=== PATIENT | male | born 1995 | race Caucasian/White ===

== ENCOUNTER → 2018-04-13 | Outpatient (CLI) | payer BC | LOC: LAB 12:17 | PROVIDERS: ATTEND Nurse Practitioner Family | DX: J02.9 Acute pharyngitis, unspecified (principal) | CPT/HCPCS: 36415; 86308 ==

== ENCOUNTER 2019-07-22 19:49 | Emergency (ER) | payer BC ==
[~2019-07-22] VITALS: Ht 170 cm; Wt 111.0 kg
--- NOTE | 2019-07-22 20:12 | ED Abdominal Pain ---
General Chief Complaint: Abdominal/GI Problems Stated Complaint: CHEST PAIN Source of Information: Patient Exam Limitations: No Limitations History of Present Illness Date Seen by Provider: Jul 22, 2019 Time Seen by Provider: 20:10 Initial Comments To ER with reports of epigastric abdominal pain that radiates straight through to his back. This is been present for one week. He also reports shaking and significant anxiety. States that he went to the [facility] twice after breakup from his girlfriend 1 month ago, was briefly on 2.5 mg of Valium which seems to help. States that he was so anxious he almost didn't come in tonight. He also complains of a foul smelling sore on the dorsal aspect of his penis for about one month. He states that after his girlfriend broke up, she then came back to him and they had sexual intercourse. He states that the gentleman that the girl was with prior to him message him and told him he might have Chlamydia. He is now concerned he might have Chlamydia as well. Timing/Duration: 1-2 Days Severity/Quality: Moderate Allergies and Home Medications Allergies Coded Allergies: No Known Drug Allergies (Unverified , 07/22/19) Home Medications Clotrimazole 15 Gm Cream..g., 1 GM TP BID Prescribed by: JEANETH PALAFOX on 07/22/192019 Dicyclomine HCl 10 Mg Capsule, 10 MG PO QID Prescribed by: JEANETH PALAFOX on 07/22/192019 Divalproex Sodium 500 Mg Tablet.dr, 500 MG PO ONCE, (Reported) Levetiracetam 750 Mg Tablet, 750 MG PO DAILY, (Reported) Patient Home Medication List Home Medication List Reviewed: Yes Review of Systems Review of Systems Constitutional: see HPI EENTM: No Symptoms Reported Respiratory: No Symptoms Reported Cardiovascular: No Symptoms Reported Gastrointestinal: See HPI, Abdominal Pain, Diarrhea; Denies Nausea Genitourinary: No Symptoms Reported Musculoskeletal: no symptoms reported Skin: no symptoms reported Psychiatric/Neurological: No Symptoms Reported Endocrine: No Symptoms Reported Hematologic/Lymphatic: No Symptoms Reported Past Avikces-Bmragm-Yfepye Hx Patient Social History Recent Foreign Travel: No Contact w/Someone Who Travel: No Physical Exam Vital Signs Vital Signs - First Documented 07/22/19 19:50 Temp 36.4 Pulse 110 Resp 16 B/P (MAP) 145/87 (106) Pulse Ox 100 O2 Delivery Room Air Capillary Refill : Height/Weight/BMI Height: '" Weight: lbs. oz. kg; BMI Method: General Appearance: WD/WN, no apparent distress, obese Neck: non-tender, full range of motion Respiratory: no respiratory distress, no accessory muscle use Cardiovascular: regular rate, rhythm, no murmur Gastrointestinal: normal bowel sounds, soft Extremities: normal range of motion, non-tender Male: other (dorsal aspect of penis where glans meets shaft is a roughly 3/4 cm circular area of slight ulceration nontender to palpation with a whitish ad herent material over it. ) Neurologic/Psychiatric: alert, normal mood/affect, oriented x 3 Skin: normal color, warm/dry Progress/Results/Core Measures Results/Orders Lab Results Laboratory Tests Test 07/22/19 19:58 07/22/19 20:20 Range/Units Urine Color YELLOW Urine Clarity CLEAR Urine pH 7.0 5-9 Urine Specific [place] 1.025 H 1.016-1.022 Urine Protein NEGATIVE NEGATIVE Urine Glucose (UA) NEGATIVE NEGATIVE Urine Ketones TRACE H NEGATIVE Urine Nitrite NEGATIVE NEGATIVE Urine Bilirubin NEGATIVE NEGATIVE Urine Urobilinogen 1.0 < = 1.0 MG/DL Urine Leukocyte Esterase NEGATIVE NEGATIVE Urine RBC (Auto) NEGATIVE NEGATIVE Urine RBC NONE /HPF Urine WBC 2-5 /HPF Urine Squamous Epithelial Cells RARE /HPF Urine Crystals PRESENT H /LPF Urine Amorphous Sediment MOD KASSANDRA PHOSPHATE H /LPF Urine Bacteria TRACE /HPF Urine Casts NONE /LPF Urine Mucus SMALL H /LPF Urine Culture Indicated NO Syphilis Serology Non-Reactive Non-Reactive Urine Chlamydia trachomatis RNA Not Detected Not Detected Urine Neisseria gonorrhoeae RNA Not Detected Not Detected White Blood Count 9.5 4.3-11.0 10^3/uL Red Blood Count 4.98 4.35-5.85 10^6/uL Hemoglobin 15.3 13.3-17.7 G/DL Hematocrit 44 40-54 % Mean Corpuscular Volume 88 80-99 FL Mean Corpuscular Hemoglobin 31 25-34 PG Mean Corpuscular Hemoglobin Concent 35 32-36 G/DL Red Cell Distribution Width 12.5 10.0-14.5 % Platelet Count 261 130-400 10^3/uL Mean Platelet Volume 9.6 7.4-10.4 FL Neutrophils (%) (Auto) 52 42-75 % Lymphocytes (%) (Auto) 37 12-44 % Monocytes (%) (Auto) 10 0-12 % Eosinophils (%) (Auto) 1 0-10 % Basophils (%) (Auto) 0 0-10 % Neutrophils # (Auto) 4.9 1.8-7.8 X 10^3 Lymphocytes # (Auto) 3.5 1.0-4.0 X 10^3 Monocytes # (Auto) 1.0 0.0-1.0 X 10^3 Eosinophils # (Auto) 0.1 0.0-0.3 10^3/uL Basophils # (Auto) 0.0 0.0-0.1 10^3/uL Sodium Level 140 135-145 MMOL/L Potassium Level 3.8 3.6-5.0 MMOL/L Chloride Level 104 98-107 MMOL/L Carbon Dioxide Level 22 21-32 MMOL/L Anion Gap 14 5-14 MMOL/L Blood Urea Nitrogen 17 7-18 MG/DL Creatinine 1.01 0.60-1.30 MG/DL Estimat Glomerular Filtration Rate > 60 BUN/Creatinine Ratio 17 Glucose Level 93 70-105 MG/DL Calcium Level 9.3 8.5-10.1 MG/DL Corrected Calcium 8.5-10.1 MG/DL Total Bilirubin 0.3 0.1-1.0 MG/DL Aspartate Amino Transf (AST/SGOT) 19 5-34 U/L Alanine Aminotransferase (ALT/SGPT) 26 0-55 U/L Alkaline Phosphatase 37 L 40-136 U/L Total Protein 7.2 6.4-8.2 GM/DL Albumin 4.7 H 3.2-4.5 GM/DL Lipase 13 8-78 U/L My Orders Orders - JEANETH PALAFOX [employer] TECHNICIAN Cbc With Automated Diff (07/22/19 20:08) Lipase (07/22/19 20:08) Ua Culture If Indicated (07/22/19 20:08) Neis Germán Dna Urine Test (07/22/19 20:08) Chlamydia Trachomatis Urine (07/22/19 20:08) Syphilis Antibody Screen (07/22/19 20:08) Comprehensive Metabolic Panel (07/22/19 20:08) Alprazolam Tablet (Xanax Tablet) (07/22/19 20:15) Vital Signs/I&O 07/22/19 07/22/19 19:50 21:04 Temp 36.4 36.9 Pulse 110 79 Resp 16 16 B/P (MAP) 145/87 (106) 136/75 Pulse Ox 100 97 O2 Delivery Room Air Room Air Departure Impression Primary Impression: Balanitis Additional Impression: Epigastric abdominal pain Disposition: 01 HOME, SELF-CARE Condition: Improved Departure-Patient Inst. Decision time for Depature: 20:16 Referrals: NO,LOCAL PHYSICIAN (PCP/Family) Primary Care Physician Patient Instructions: Balanitis, IRRITABLE BOWEL SYNDROME Add. Discharge Instructions: 1. Apply the cream topically to the penis twice daily as directed. 2. Medication as directed. Follow-up with your doctor next week All discharge instructions reviewed with patient and/or family. Voiced understanding. Scripts Clotrimazole (Clotrimazole) 15 Gm Cream..g. 1 GM TP BID for 14 Days, #1 TUBE Prov: JEANETH PALAFOX [employer] TECHNICIAN 07/22/19 Dicyclomine HCl (Dicyclomine HCl) 10 Mg Capsule 10 MG PO QID, #40 CAP Prov: JEANETH PALAFOX [employer] TECHNICIAN 07/22/19 JEANETH PALAFOX [employer] TECHNICIAN Jul 22, 2019 20:12
[2019-07-22] MEDS ORDERED: DIVA500T PO (20:15)
[2019-07-22] MEDS ORDERED: LEVE750T19 PO (20:15)
[2019-07-22] MEDS ORDERED: ALPRAZolam 0.25 MG (XANAX) TAB PO ONE (20:15)
[2019-07-22] MEDS ORDERED: DICY10CA12 PO (20:20)
[2019-07-22] MEDS ORDERED: CLOT15CR5 TP (20:20)
[2019-07-22 20:22] LABS: BILIRUBIN,URINE NEGATIVE (NEGATIVE); CLARITY,URINE CLEAR; COLOR,URINE YELLOW; GLUCOSE, URINE (UA) NEGATIVE (NEGATIVE); KETONES,URINE TRACE (NEGATIVE); LEUKOCYTE ESTERASE ,URINE NEGATIVE (NEGATIVE); NITRITE,URINE NEGATIVE (NEGATIVE); PROTEIN,URINE NEGATIVE (NEGATIVE)
[2019-07-22 20:31] LABS: AMORPHOUS SEDIMENT,UR MOD AMOR PHOSPHATE /LPF; BACTERIA,URINE TRACE /HPF; SQUAMOUS EPITHELIAL CELL,UR RARE /HPF
[2019-07-22 20:34] LABS: BASOPHILS % (AUTO) 0 % (0-10); EOSINOPHILS # (AUTO) 0.1 10^3/uL (0.0-0.3); EOSINOPHILS % (AUTO) 1 % (0-10); HEMATOCRIT 44 % (40-54); HEMOGLOBIN 15.3 G/DL (13.3-17.7); LYMPHOCYTES # (AUTO) 3.5 X 10^3 (1.0-4.0); LYMPHOCYTES % (AUTO) 37 % (12-44); MEAN CORPUSCULAR HEMOGLOBIN 31 PG (25-34); MEAN CORPUSCULAR HGB CONC 35 G/DL (32-36); MEAN CORPUSCULAR VOLUME 88 FL (80-99); MEAN PLATELET VOLUME 9.6 FL (7.4-10.4); MONOCYTES % (AUTO) 10 % (0-12); NEUTROPHILS # (AUTO) 4.9 X 10^3 (1.8-7.8); NEUTROPHILS % (AUTO) 52 % (42-75); PLATELET COUNT 261 10^3/uL (130-400); RED CELL DISTRIBUTION WIDTH 12.5 % (10.0-14.5); WHITE BLOOD COUNT 9.5 10^3/uL (4.3-11.0)
[2019-07-22 20:47] LABS: ALANINE AMINOTRANSFERASE 26 U/L (0-55); ALBUMIN 4.7 GM/DL (3.2-4.5); ALKALINE PHOSPHATASE 37 U/L (40-136); BILIRUBIN,TOTAL 0.3 MG/DL (0.1-1.0); BUN/CREATININE RATIO 17; CALCIUM 9.3 MG/DL (8.5-10.1); CARBON DIOXIDE 22 MMOL/L (21-32); CHLORIDE 104 MMOL/L (98-107); CREATININE SERUM 1.01 MG/DL (0.60-1.30); GFR ESTIMATED > 60; GLUCOSE 93 MG/DL (70-105); LIPASE 13 U/L (8-78); POTASSIUM 3.8 MMOL/L (3.6-5.0); SODIUM 140 MMOL/L (135-145); TOTAL PROTEIN 7.2 GM/DL (6.4-8.2)
[2019-07-22 21:04] VITALS: BP 136/75
== END 2019-07-22 21:06 | disposition home or self-care (01) ==
LOC: EDUNIT# 19:49 → ER 19:50
DX: N48.1 Balanitis (principal); R10.13 Epigastric pain
CPT/HCPCS: 36415; 80053; 81000; 83690; 85025; 86780; 87491; 87591; 99283